=== PATIENT | female | born 1950 | race Caucasian/White ===

== ENCOUNTER 2017-10-10 01:32 | Outpatient (CLI) | payer MEDICARE | END 2017-10-10 23:59 | disposition home or self-care (01) | LOC: DIABETIC 01:32 | PROVIDERS: ATTEND Student in an Organized Health Care Education/Training Program | DX: E11.9 Type 2 diabetes mellitus without complications (principal) | CPT/HCPCS: G0108 ==

== ENCOUNTER 2023-08-21 17:00 | Inpatient (IN) | payer MEDICARE ==
[~2023-08-21] VITALS: Ht 154.9 cm; Wt 43.6 kg
[2023-08-21 18:31] LABS: BASOPHILS % (AUTO) 0.4 % (0-1); EOSINOPHILS % (AUTO) 0.3 % (0-6); HEMATOCRIT 40.3 % (35.0-45.0); HEMOGLOBIN 13.7 g/dl (12.0-16.0); LYMPHOCYTES # (AUTO) 0.8 X10'3 (1.1-4.8); LYMPHOCYTES % (AUTO) 6.2 % (21-51); MEAN CORPUSCULAR HEMOGLOBIN 32.2 PG (27.0-31.0); MEAN CORPUSCULAR VOLUME 94.8 FL (78-98); MEAN PLATELET VOLUME 7.2 FL (7.4-10.4); MONOCYTES # (AUTO) 0.8 X10'3 (0-0.9); MONOCYTES % (AUTO) 6.5 % (2-12); NEUTROPHILS # (AUTO) 10.6 X10'3 (1.8-7.7); NEUTROPHILS % (AUTO) 86.6 % (42-75); PLATELET COUNT 292 X10'3 (140-440); RED BLOOD COUNT 4.25 X10'6 (4.20-5.60); RED CELL DISTRIBUTION WIDTH 13.8 % (11.5-14.5); WHITE BLOOD COUNT 12.2 X10'3 (4.5-11.0)
[2023-08-21 19:11] LABS: ALANINE AMINOTRANSFERASE 46 U/L (12-78); ALBUMIN 4.2 G/DL (3.4-5.0); ALBUMIN/GLOBULIN RATIO 1.3 (1.1-1.5); ALKALINE PHOSPHATASE 105 IU/L (46-116); ANION GAP 5 (8-16); ASPARTATE AMINO TRANSFERASE 31 U/L (10-37); BILIRUBIN,TOTAL 0.6 MG/DL (0.1-1.0); BLOOD UREA NITROGEN 19 MG/DL (7-18); BUN/CREATININE RATIO 24.7 (10.0-20.0); CALCIUM 9.1 MG/DL (8.5-10.1); CHLORIDE 102 MMOL/L (99-107); CREATININE 0.77 MG/DL (0.40-0.90); GLUCOSE 108 MG/DL (70-104); LIPASE 29 U/L (16-77); POTASSIUM 3.8 MMOL/L (3.5-5.1); SODIUM 138 MMOL/L (135-145); TOTAL CARBON DIOXIDE 30.7 MMOL/L (24-32); TOTAL PROTEIN 7.4 G/DL (6.4-8.2); eCRCL 46 ML/MIN; eGFR 74 ML/MIN
[2023-08-21] MEDS ORDERED: iohexol 300mg/ml 100ml inj. ONE (19:44)
[2023-08-21] MEDS: morphine 2 MG/ML inj. syringe IV ONE (19:45)
[2023-08-21] MEDS ORDERED: temazepam 15mg capsule PO PRN (21:00)
[2023-08-21] MEDS: normal saline 1000ml 1,000 ML IV ONE (21:10)
[2023-08-21] MEDS ORDERED: HYDROcodone/acetaminophen 10/325mg tab PO PRN (23:25)
[2023-08-21] MEDS ORDERED: potassium Cl 40MEQ/1/2NS 520ml 520 ML IV PRN (23:25)
[2023-08-21] MEDS ORDERED: HYDROcodone/acetaminophen 5mg/325mg tablet PO PRN (23:25)
[2023-08-21] MEDS ORDERED: magnesium hydroxide 30ml (MOM) UD suspension PO PRN (23:25)
[2023-08-21] MEDS ORDERED: magnesium 2GM in 50ml NS 50 ML IV PRN (23:25)
[2023-08-21] MEDS ORDERED: ondansetron 4mg rapidly disintigrating tab PO PRN (23:25)
[2023-08-21] MEDS ORDERED: bisacodyl 10mg suppository rectal RC PRN (23:25)
[2023-08-21] MEDS ORDERED: morphine 2 MG/ML inj. syringe IV PRN (23:25)
[2023-08-21] MEDS ORDERED: mag hydrox/Alum hydrox/simeth 30ml oral suspension PO PRN (23:25)
[2023-08-21] MEDS ORDERED: diphenhydrAMINE 50 mg/ml inj IV PRN (23:25)
[2023-08-21] MEDS ORDERED: acetaminophen 650mg rectal suppository RC PRN (23:25)
[2023-08-21] MEDS ORDERED: acetaminophen 325mg tablet PO PRN ×2 (23:25)
[2023-08-21] MEDS ORDERED: diphenhydrAMINE 25mg capsule PO PRN (23:25)
[2023-08-21] MEDS ORDERED: magnesium 4gm in 100ml NS 100 ML IV PRN (23:25)
[2023-08-21] MEDS ORDERED: magnesium Cl slow-release 64mg tablet PO PRN (23:25)
[2023-08-21] MEDS ORDERED: potassium Cl 20 mEq SR tablet PO PRN ×2 (23:25)
[2023-08-22] VITALS (7 sets, daily range): BP systolic 103–146; BP diastolic 55–67; PULSE 62–84; RESP 12–21; TEMP 97.6–98.3; O2SAT 95–100
[2023-08-22] MEDS: morphine 2 MG/ML inj. syringe IV PRN (00:32)
[2023-08-22] MEDS: normal saline 1000ml 1,000 ML IV SCH (00:38)
[2023-08-22] MEDS: pantoprazole 40MG/NS 100ML BAG 100 ML IV SCH (00:39)
[2023-08-22] MEDS ORDERED: diatrozoate meglu/diatrozoate sod (37% iodine) 120ML oral solution PO ONE ×2 (01:15)
[2023-08-22] MEDS: diatr meglu/diatrizoate 30ml oral sol.-(3 dose) bottle PO SCH (01:45)
[2023-08-22] MEDS: piperacillin/tazo 3.375gm/50ml 50 ML IV SCH (01:46)
[2023-08-22] MEDS ORDERED: LEVO50TA66 PO (02:55)
[2023-08-22 05:07] LABS: BILIRUBIN,URINE NEGATIVE (Neg); CLARITY,URINE CLEAR (Clear); COLOR,URINE STRAW (Yellow); GLUCOSE, URINE NEGATIVE (Neg); KETONES,URINE 15 mg/dl (Neg); LEUKOCYTE ESTERASE ,URINE NEGATIVE (Neg); NITRITES, URINE NEGATIVE (Neg); OCCULT BLOOD,URINE TRACE-INTACT (Neg); PH,URINE 6.5 (4.8-8.0); PROTEIN,URINE NEGATIVE (Neg); UROBILINOGEN,URINE 0.2 E.U/dL (0.2-1.0)
[2023-08-22 05:13] LABS: UA COLLECTION TYPE CLN CATCH MIDSTREAM
[2023-08-22 05:16] LABS: BACTERIA,URINE NONE SEEN /HPF (Neg); MUCUS STRANDS NONE SEEN /LPF (Neg); RBC,URINE 0-2 /HPF (0-2); SQUAMOUS EPITHELIAL CELL,UR FEW /LPF (FEW); WBC,URINE 0-4 /HPF (0-4)
[2023-08-22 07:05] LABS: BASOPHILS % (AUTO) 0.3 % (0-1); EOSINOPHILS % (AUTO) 0.4 % (0-6); HEMATOCRIT 38.3 % (35.0-45.0); LYMPHOCYTES # (AUTO) 0.5 X10'3 (1.1-4.8); LYMPHOCYTES % (AUTO) 5.3 % (21-51); MEAN CORPUSCULAR HEMOGLOBIN 32.2 PG (27.0-31.0); MEAN CORPUSCULAR HGB CONC 33.9 g/dL (33.0-36.5); MEAN CORPUSCULAR VOLUME 95.1 FL (78-98); MEAN PLATELET VOLUME 7.4 FL (7.4-10.4); MONOCYTES % (AUTO) 10.1 % (2-12); NEUTROPHILS # (AUTO) 8.3 X10'3 (1.8-7.7); NEUTROPHILS % (AUTO) 83.9 % (42-75); PLATELET COUNT 265 X10'3 (140-440); RED BLOOD COUNT 4.03 X10'6 (4.20-5.60); WHITE BLOOD COUNT 9.9 X10'3 (4.5-11.0)
[2023-08-22 07:13] LABS: APTT 27 SECONDS (22-32); HEMOGLOBIN A1C 5.6 % (4.5-6.2); PROTHROMBIN TIME 10.9 SECONDS (9.0-12.0)
[2023-08-22 07:30] LABS: ALANINE AMINOTRANSFERASE 34 U/L (12-78); ALBUMIN 3.3 G/DL (3.4-5.0); ALBUMIN/GLOBULIN RATIO 1.2 (1.1-1.5); ALKALINE PHOSPHATASE 81 IU/L (46-116); ANION GAP 9 (8-16); ASPARTATE AMINO TRANSFERASE 24 U/L (10-37); BLOOD UREA NITROGEN 11 MG/DL (7-18); BUN/CREATININE RATIO 14.1 (10.0-20.0); CALCIUM 8.1 MG/DL (8.5-10.1); CHLORIDE 107 MMOL/L (99-107); CHOLESTEROL 182 MG/DL (0-200); CREATINE KINASE 75 U/L (26-192); CREATININE 0.78 MG/DL (0.40-0.90); GLUCOSE 100 MG/DL (70-104); HDL CHOLESTEROL 60 MG/DL (35-60); LDL CHOLESTEROL 109 MG/DL (50-100); MAGNESIUM 2.1 MG/DL (1.5-2.4); PHOSPHORUS 4.1 MG/DL (2.3-4.5); POTASSIUM 3.6 MMOL/L (3.5-5.1); PRO BRAIN NATRIURETIC PEPTIDE 187 PG/ML (0-125); SODIUM 143 MMOL/L (135-145); TOTAL CARBON DIOXIDE 27.3 MMOL/L (24-32); TOTAL PROTEIN 6.1 G/DL (6.4-8.2); TRIGLYCERIDES 70 MG/DL (20-135); eCRCL 45 ML/MIN; eGFR 73 ML/MIN
[2023-08-22] MEDS: K and/or MAG REPLACEMENT MC SCH (08:00)
[2023-08-22] MEDS: heparin, porcine 5000 units/ml vial SQ SCH (09:11)
[2023-08-22] MEDS: docusate sod 100mg capsule PO SCH (09:11)
[2023-08-22] MEDS: ondansetron/PF 4mg/2ml inj IV PRN (09:51)
[2023-08-23 02:00] VITALS: BP 106/54; PULSE 76; RESP 15; TEMP 98.1; O2SAT 98
[2023-08-23 06:00] VITALS: BP 121/58; PULSE 73; RESP 14; TEMP 97.7; O2SAT 99
[2023-08-23 08:00] VITALS: RESP 14; O2SAT 99
[2023-08-23] MEDS: levoTHYROXINE 25mcg tablet PO SCH (08:50)
[2023-08-23 09:06] LABS: BASOPHILS # (AUTO) 0.1 X10'3 (0-0.2); BASOPHILS % (AUTO) 1.1 % (0-1); EOSINOPHILS # (AUTO) 0.1 X10'3 (0-0.9); EOSINOPHILS % (AUTO) 2.3 % (0-6); HEMATOCRIT 36.3 % (35.0-45.0); HEMOGLOBIN 12.1 g/dl (12.0-16.0); LYMPHOCYTES # (AUTO) 0.6 X10'3 (1.1-4.8); LYMPHOCYTES % (AUTO) 10.5 % (21-51); MEAN CORPUSCULAR HEMOGLOBIN 31.9 PG (27.0-31.0); MEAN CORPUSCULAR HGB CONC 33.2 g/dL (33.0-36.5); MEAN PLATELET VOLUME 7.2 FL (7.4-10.4); MONOCYTES # (AUTO) 0.5 X10'3 (0-0.9); MONOCYTES % (AUTO) 8.4 % (2-12); NEUTROPHILS # (AUTO) 4.6 X10'3 (1.8-7.7); NEUTROPHILS % (AUTO) 77.7 % (42-75); PLATELET COUNT 219 X10'3 (140-440); RED BLOOD COUNT 3.78 X10'6 (4.20-5.60); RED CELL DISTRIBUTION WIDTH 13.8 % (11.5-14.5); WHITE BLOOD COUNT 5.9 X10'3 (4.5-11.0)
[2023-08-23 09:23] LABS: ALANINE AMINOTRANSFERASE 27 U/L (12-78); ALBUMIN 2.9 G/DL (3.4-5.0); ALBUMIN/GLOBULIN RATIO 1.2 (1.1-1.5); ALKALINE PHOSPHATASE 63 IU/L (46-116); ANION GAP 12 (8-16); ASPARTATE AMINO TRANSFERASE 23 U/L (10-37); BILIRUBIN,TOTAL 0.7 MG/DL (0.1-1.0); BLOOD UREA NITROGEN 8 MG/DL (7-18); BUN/CREATININE RATIO 10.8 (10.0-20.0); CALCIUM 7.9 MG/DL (8.5-10.1); CHLORIDE 110 MMOL/L (99-107); CREATININE 0.74 MG/DL (0.40-0.90); GLUCOSE 69 MG/DL (70-104); MAGNESIUM 1.9 MG/DL (1.5-2.4); POTASSIUM 3.4 MMOL/L (3.5-5.1); SODIUM 146 MMOL/L (135-145); TOTAL CARBON DIOXIDE 23.9 MMOL/L (24-32); TOTAL PROTEIN 5.4 G/DL (6.4-8.2); eCRCL 47 ML/MIN; eGFR 77 ML/MIN
[2023-08-23 11:00] VITALS: BP 118/70; PULSE 69; RESP 12; TEMP 98.2; O2SAT 100
== END 2023-08-23 16:00 | disposition home or self-care (01) | DRG 392 ==
LOC: ER 17:01 → ED HOLD 23:40 → PCU 3S 08-22 05:37
PROVIDERS: ADMIT Family Medicine; ATTEND Internal Medicine
PROC: BW211ZZ Computerized Tomography (CT Scan) of Abdomen and Pelvis using Low Osmolar Contrast (ICD-10-PCS; principal; 2023-08-21)
DX: A09 Infectious gastroenteritis and colitis, unspecified (principal); E46 Unspecified protein-calorie malnutrition; Z68.1 Body mass index [BMI] 19.9 or less, adult; K56.7 Ileus, unspecified; I12.9 Hypertensive chronic kidney disease with stage 1 through stage 4 chronic kidney disease, or unspecified chronic kidney disease; N18.9 Chronic kidney disease, unspecified; K63.89 Other specified diseases of intestine; E03.9 Hypothyroidism, unspecified
CPT/HCPCS: 36415; 71045; 74176; 74177; 80053; 80061; 81001; 82550; 83036; 83605; 83690; 83735; 83880; 84100; 84145; 84443; 84484; 85025; 85610; 85730; 87040; 87081; 97116; 97161; 97530; 99285; C9113; G0378; J1644; J2270; J2405; J2543; J3490; J7030; J7040; Q9963; Q9967